=== PATIENT | male | born 1950 | race Caucasian/White ===

== ENCOUNTER 2018-03-27 10:29 | Outpatient (CLI) | payer MEDICARE, BC ==
[2018-03-27 11:34] LABS: Anion Gap 14 mmol/L (10-20); BUN (Urea Nitrogen) 20 mg/dL (8.4-25.7); Calc. Creatinine Clearance 0 mL/min (70-130); Calcium 9.2 mg/dL (7.8-10.44); Carbon Dioxide 24 mmol/L (23-31); Chloride 105 mmol/L (98-107); Estimated GFR-MDRD Greater than 90; Glucose 93 mg/dL (80-115); Potassium 4.2 mmol/L (3.5-5.1); Sodium 139 mmol/L (136-145)
[2018-03-27 11:37] LABS: #Basophils 0.1 thou/uL (0.0-0.2); #Eosinphils 0.1 thou/uL (0.0-0.7); #Lymphocytes 1.7 thou/uL (1.20-3.40); #Monocytes 0.8 thou/uL (0.11-0.59); #Neutrophils 6.6 thou/uL (1.40-6.50); %Basophils 0.7 % (0.0-1.0); %Eosinophils 1.2 % (0.0-10.0); %Lymphocytes 17.9 % (21.0-51.0); %Monocytes 8.8 % (0.0-10.0); %Neutrophils 71.4 % (42.0-75.0); Hemoglobin 15.6 g/dL (14.0-18.0); Mean Corpuscular HGB CONC 33.7 g/dL (32.0-36.0); Mean Corpuscular Hemoglobin 32.6 pg (27.0-31.0); Mean Corpuscular Volume 96.9 fL (78.0-98.0); Mean Platelet Volume 8.2 fL (7.4-10.4); Platelet Count 220 thou/uL (130-400); RBC Distribution Width 11.8 % (11.5-14.5); Red Blood Cell (RBC) Count 4.77 mill/uL (4.70-6.10); White Blood Cell (WBC) Count 9.2 thou/uL (4.8-10.8)
== END 2018-03-27 10:30 | disposition home or self-care (01) ==
LOC: LABBT 10:29
PROVIDERS: ATTEND Surgery
DX: Z01.818 Encounter for other preprocedural examination (principal); K40.90 Unilateral inguinal hernia, without obstruction or gangrene, not specified as recurrent
CPT/HCPCS: 80048; 85025; 93005; 93010

== ENCOUNTER 2018-03-29 05:51 | Day surgery (SDC) | payer MEDICARE, BC ==
[2018-03-27 10:40] VITALS: BMI 26.6
[2018-03-29] MEDS ORDERED: Fentanyl 250 MCG/5 ML VIAL ONE (06:06)
[2018-03-29] MEDS ORDERED: CEFAZOLIN 2 GM/50 ML BAG ONE (06:31)
[2018-03-29] MEDS ORDERED: Midazolam HCl 2 mg/2 ml Vial ONE (06:55)
[2018-03-29] MEDS ORDERED: Bupivacaine HCl 0.25%/Epi 0.0005/PF 10 ML VIAL FS ONE ×2 (06:56)
--- NOTE | 2018-03-29 09:36 | OP ---
DATE OF PROCEDURE: 03/29/2018 PREOPERATIVE DIAGNOSIS: Right inguinal hernia. POSTOPERATIVE DIAGNOSIS: Right inguinal hernia. PROCEDURE PERFORMED: Da Estrella laparoscopic right inguinal hernia repair with mesh of Bard 3DMax large. ANESTHESIA: General. ESTIMATED BLOOD LOSS: Minimal. COMPLICATIONS: None. SPECIMEN: None. FINDINGS: Right inguinal hernia. TECHNIQUE: The patient was taken to the operating room and laid supine on the operating room table. After general anesthetic was obtained, a Kevin was placed. The abdomen was shaved, prepped, and draped in a sterile fashion. A curved incision was made above the umbilicus. Cautery was used to dissect down to and score the fascia. Abdominal cavity was entered bluntly using Monica clamp. A 12 mm balloon trocar was placed. High-flow pneumoperitoneum was obtained. Left and right abdominal 8 mm robotic trocars were placed. All ports were docked to the robot. Peritoneum was taken down in the right groin exposing the preperitoneal space. The preperitoneal space was bluntly dissected to pubic tubercle medially, anterior superior iliac crest laterally. The shelving edge of inguinal ligament was fully exposed. No direct hernia. The indirect hernia was dissected out of the internal ring back high up on to the peritoneum. The cord lipoma was dissected high up on to the peritoneum and out of the pocket as well. 3DMax large mesh was brought into the sterile field medial aspect was placed over the pubic tubercle. The mesh was laid out to cover the femoral, direct, and indirect areas. The mesh was sewn via 2-0 Vicryl to the pubic tubercle medially, into the posterior fascia laterally. There was no bleeding. The peritoneum was closed using running Stratafix suture. All needles were removed and accounted for. All port sites were infiltrated using local anesthetic. All ports were undocked from the robot. All ports were removed without bleeding. Pneumoperitoneum was let down. PDS was used to close the fascial defect above the umbilicus. All incisions were irrigated and closed using 4-0 Monocryl and Dermabond. The patient was sent to Recovery in stable condition. All sponge counts, needle counts, and lap counts were correct. Job ID: [id number]
[2018-03-29] MEDS ORDERED: Glycopyrrolate 0.2 MG/ML 5 ML SYRINGE ONE (15:37)
[2018-03-29] MEDS ORDERED: Dexamethasone 20 MG/5 ML VIAL ONE (15:37)
[2018-03-29] MEDS ORDERED: PROPOFOL 200 MG/20 ML VIAL ONE (15:37)
[2018-03-29] MEDS ORDERED: Ketorolac Tromethamine 30 MG/ML VIAL ONE (15:37)
[2018-03-29] MEDS ORDERED: Rocuronium Bromide 10 MG/ML (10ML VIAL) ONE (15:37)
[2018-03-29] MEDS ORDERED: ePHEDrine/0.9% NaCl/PF SYRINGE 50 mg/10 ml ONE (15:37)
[2018-03-29] MEDS ORDERED: Ondansetron PF 4 MG/2 ML Vial ONE (15:37)
[2018-03-29] MEDS ORDERED: Lidocaine 1% PF 5 ML VIAL ONE (15:37)
== END 2018-03-29 17:00 | disposition home or self-care (01) ==
LOC: SDC 05:51
PROVIDERS: ATTEND Surgery
PROC: 0YU54JZ Supplement Right Inguinal Region with Synthetic Substitute, Percutaneous Endoscopic Approach (ICD-10-PCS; principal; 2018-03-29)
DX: K40.90 Unilateral inguinal hernia, without obstruction or gangrene, not specified as recurrent (principal); D17.6 Benign lipomatous neoplasm of spermatic cord; I10 Essential (primary) hypertension; Z79.51 Long term (current) use of inhaled steroids; Z79.899 Other long term (current) drug therapy
CPT/HCPCS: 49650; C1781; J1100; J1885; J2001; J2250; J2405; J2704; J3010